=== PATIENT | female | born 1955 ===

== ENCOUNTER 2018-06-19 10:08 | Emergency (ER) | payer MEDICARE, MEDICAID ==
[2018-06-19 10:16] VITALS: BMI 41.3
[2018-06-19] MEDS ORDERED: Tdap Vaccine 0.5 ml Vial (10-64 yrs) IM ONE ×2 (11:25→13:56)
[2018-06-19] MEDS ORDERED: Piperacillin/Tazobact 3.375 GM in Sodium Chloride 0.9% 100 ML IVPB STA (11:25)
[2018-06-19 11:43] LABS: BASO % 0.7 % (0.0-2.0); EOS # 0.3 K/uL (0.0-0.7); EOS % 4.1 % (0.0-4.0); HEMOGLOBIN 11.6 g/dL (12.0-16.0); LYMPH # 1.4 K/uL (1.0-4.3); MEAN CELL VOLUME 81.4 fl (81.0-99.0); MEAN PLATELET VOLUME 8.1 fl (7.2-11.7); MONO # 0.6 K/uL (0.0-0.8); MONO % 8.6 % (0.0-10.0); NEUT # 4.3 K/uL (1.8-7.0); NEUT % 65.6 % (50.0-75.0); NRBC % 0.1 % (0.0-0.0); RBC 4.47 Mil/uL (3.80-5.20); RED CELL DISTRIBUTION WIDTH 15.2 % (11.5-14.5); WHITE BLOOD COUNT 6.5 K/uL (4.8-10.8)
[2018-06-19] MEDS ORDERED: Vancomycin 1 g Inj ONE (11:50)
[2018-06-19 12:02] LABS: ALBUMIN 3.9 g/dL (3.5-5.0); ALT/SGPT 30 U/L (9-52); AST/SGOT 27 U/L (14-36); BLOOD UREA NITROGEN 27 mg/dl (7-17); CALCIUM 9.3 mg/dL (8.4-10.2); GFR NON-AFRICAN AMERICAN > 60
--- NOTE | 2018-06-19 12:09 | RAD ---
Date of service: 06/19/2018 PROCEDURE: Radiographs of the right tibia and fibula. HISTORY: Right lower extremity Pain. No history of recent/ related trauma provided COMPARISON: None available TECHNIQUE: Frontal and lateral views obtained. FINDINGS: BONES: No fracture or destructive lesion. JOINT SPACES: Unremarkable. OTHER FINDINGS: Suggestion of soft tissue swelling about the calf. IMPRESSION: Soft tissue swelling without acute articular or osseous abnormality.
--- NOTE | 2018-06-19 12:15 | ED PDOC ---
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 states last she accidentally struck her R leg against the step on a bus causing a cut on her leg. Since then she's had progressively worsening pain and redness. Denies numbness, tingling, fever, chills, antipyretic use. Past Medical History Reviewed: Historical Data, Nursing Documentation, Vital Signs Vital Signs: Last Vital Signs Temp 98.8 F 06/19/18 10:31 Pulse 72 06/19/18 10:31 Resp 19 06/19/18 10:31 BP 151/81 H 06/19/18 10:31 Pulse Ox 99 06/19/18 10:31 - Medical History PMH: Arthritis, HTN - Surgical History Surgical History: No Surg Hx - Family History Family History: States: No Known Family Hx - Home Medications Home Medications: Ambulatory Orders Medication Instructions Recorded Cephalexin [cephalexin] 500 mg PO Q6 #28 cap 06/19/18 - Allergies Allergies/Adverse Reactions: Allergies Allergy/AdvReac Type Severity Reaction Status Date / Time No Known Allergies Allergy Verified 06/19/18 11:24 Review of Systems ROS Statement: Except As Marked, All Systems Reviewed And Found Negative Musculoskeletal: Positive for: Leg Pain Physical Exam - Physical Exam Appears: Positive for: Well, Non-toxic, No Acute Distress Skin: Positive for: Normal Color, Warm, DRY Eye Exam: Positive for: Normal appearance Cardiovascular/Chest: Positive for: Regular Rate, Rhythm Respiratory: Positive for: Normal Breath Sounds. Negative for: Respiratory Distress Pulses-Dorsalis Pedis (L): 2+ Pulses-Dorsalis Pedis (R): 2+ Extremity: Positive for: Other (R anterior distal leg with healed wound but with surrounding circumferential erythema without fluctuance or discharge). Negative for: Calf Tenderness (b/l) Neurological/Psych: Positive for: Awake, Alert, Oriented (x3) - Laboratory Results Result Diagrams: 06/19/18 11:35 06/19/18 11:35 Lab Results: Total Bilirubin 0.3 mg/dl (0.2-1.3) 06/19/18 11:35 AST 27 U/L (14-36) 06/19/18 11:35 ALT 30 U/L (9-52) 06/19/18 11:35 Alkaline Phosphatase 96 U/L (38-126) 06/19/18 11:35 Total Protein 7.9 G/DL (6.3-8.2) 06/19/18 11:35 Albumin 3.9 g/dL (3.5-5.0) 06/19/18 11:35 Globulin 4.0 gm/dL (2.2-3.9) H 06/19/18 11:35 Albumin/Globulin Ratio 1.0 (1.0-2.1) 06/19/18 11:35 - ECG O2 Sat by Pulse Oximetry: 99 - Radiology X-Ray: Interpreted by Me (R tib/fib x-ray) X-Ray Interpretation: No Acute Disease - Progress ED Course And Treament: Labs, duplex R leg vein US, tib/fib R leg, zosyn IV, vancomycin IV, tetanus prophylaxis ordered. Pt. evaluated by Dr. Rojas, podiatry resident, who recommends outpatient treatment for keflex. Pt. informed of plan and care. Advised to f/u with podiatry clinic for further evaluation but is to return to ED immediately if symptoms worsen. Disposition - Clinical Impression Clinical Impression: Cellulitis - Patient ED Disposition Is Patient to be Admitted: No - Disposition Referrals: Podiatry Clinic [Outside] Disposition: Routine/Home Disposition Time: 15:30 Condition: STABLE Additional Instructions: FOLLOW UP WITH PODIATRY CLINIC FOR FURTHER EVALUATION RETURN TO ED IMMEDIATELY IF SYMPTOMS WORSEN LIANA WELLS, thank you for letting us take care of you today. Your provider was Mir Crespo III, DO and you were treated for RT LEG PAIN. The emergency ms dical care you received today was directed at your acute symptoms. If you were prescribed any medication, please fill it and take as directed. It may take several days for your symptoms to resolve. Return to the Emergency Department if your symptoms worsen, do not improve, or if you have any other problems. Please contact your doctor or call one of the physicians/clinics you have been referred to that are listed on the Patient Visit Information form that is included in your discharge packet. Bring any paperwork you were given at discharge with you along with any medications you are taking to your follow up visit. Our treatment cannot replace ongoing medical care by a primary care provider outside of the emergency department. Thank you for allowing the [facility] team to be part of your care today. If you had an X-Ray or CT scan: A Radiologist will review the ED reading if any change in treatment is needed we will contact you. If you had a blood, urine, or wound culture: It will take several days for the results, if any change in treatment is needed we will contact you. If you had an STI test: It will take 48 hours for the results. Please call after 1 week if you have not heard back. Prescriptions: Cephalexin [cephalexin] 500 mg PO Q6 #28 cap Instructions: Cellulitis (Skin Infection), Adult (DC) Print Language: MALDIVIAN
[2018-06-19] MEDS ORDERED: Piperacillin/Tazobact 3.375 gm Inj IVPB ONE (13:56)
--- NOTE | 2018-06-19 14:22 | US ---
Date of service: 06/19/2018 PROCEDURE: Right lower extremity venous duplex Doppler. HISTORY: Right thigh and leg pain. COMPARISON: None available. TECHNIQUE: Common femoral, superficial femoral, popliteal and posterior tibial veins were evaluated. Flow was assessed with color Doppler, compressibility, assessment of phasic flow and augmentation response. FINDINGS: COMMON FEMORAL VEIN: Unremarkable. SUPERFICIAL FEMORAL VEIN: Unremarkable. POPLITEAL VEIN: Unremarkable. POSTERIOR TIBIAL VEIN: Unremarkable. OTHER FINDINGS: Morphologically, unremarkable lymph node(s) right inguinal region the largest measures 0.8 x 2.9 cm. IMPRESSION: No evidence of deep venous thrombosis in the right lower extremity.
--- NOTE | 2018-06-19 14:49 | CP.PCM.CON ---
History of Present Illness - History of Present Illness History of Present Illness: Podiatry consult note for attending Dr. Thorpe: 63 year old female patient with PMH of HTN a Seen and evaluated at the bedside in the ED for right LE erythema, edema and pain. Patient states that last week she had a small wound in her right leg. She states that it started to get red, hot and swollen. She states that she has only mild pain in her right leg. She states that it's improved now. Patient denies any recent fevers, nausea, vomiting, SOB and chills. She denies any other pedal complaint at this time. She denies numbness, tingling r burning sensation in her lower extremities. Past medical history:HTN Past surgical history: Uterine fibroma surgery Allergies: NKDA Social history: Denies tobacco, alcohol, and illicit drug use. Review of Systems - Review of Systems Review of Systems: As per HPI - Constitutional Constitutional: As Per HPI Past Patient History - Infectious Disease Hx of Infectious Diseases: None - Past Social History Smoking Status: Never Smoked - CARDIAC Hx Hypertension: Yes - PULMONARY Hx Respiratory Disorders: No - ENDOCRINE/METABOLIC Hx Endocrine Disorders: No - INTEGUMENTARY Hx Dermatological Problems: No - MUSCULOSKELETAL/RHEUMATOLOGICAL Hx Arthritis: Yes - PSYCHIATRIC Hx Psychophysiologic Disorder: No Hx Substance Use: No - SURGICAL HISTORY Hx Surgeries: Yes Other/Comment: uterine fibroma - ANESTHESIA Hx Anesthesia: Yes Hx Anesthesia Reactions: No Meds Home Medications: Home Medication List Medication Instructions Recorded Confirmed Type Cephalexin [cephalexin] 500 mg PO Q6 #28 cap 06/19/18 Rx Allergies/Adverse Reactions: Allergies Allergy/AdvReac Type Severity Reaction Status Date / Time No Known Allergies Allergy Verified 06/19/18 11:24 Physical Exam - Constitutional Appears: Well, Non-toxic, No Acute Distress - Head Exam Head Exam: ATRAUMATIC, NORMOCEPHALIC - Extremities Exam Additional comments: B/L LE focused exam: VASC: DP and PT pulses palpable 2/4 ; cap refill <3 seconds to all digits; Temp gradient Warm to warm on the right side; Mild non pitting edema noted on the right leg. NEURO: Gross and protective sensation intact. DERM: Small closed wound covered by hard scab noted in the lower 1/3 of the right leg surrounded by circumferential erythema. MSK: Pain on palpation of the lower 1/3 of the right leg. Muscle power intact 5/5 to all groups b/l. B/L HAV. B/L hammer toe to 2-5 digits b/l. - Neurological Exam Neurological exam: Alert, Oriented x3 - Psychiatric Exam Psychiatric exam: Normal Affect, Normal Mood Results - Vital Signs Recent Vital Signs: Last Vital Signs Temp 98.8 F 06/19/18 10:31 Pulse 72 06/19/18 10:31 Resp 19 06/19/18 10:31 BP 151/81 H 06/19/18 10:31 Pulse Ox 99 06/19/18 12:19 - Labs Result Diagrams: 06/19/18 11:35 06/19/18 11:35 Labs: Laboratory Results - last 24 hr 06/19/18 06/19/18 11:35 11:35 WBC 6.5 RBC 4.47 Hgb 11.6 L Hct 36.4 MCV 81.4 MCH 26.0 L MCHC 32.0 L RDW 15.2 H Plt Count 298 MPV 8.1 Neut % (Auto) 65.6 Lymph % (Auto) 21.0 [place] % (Auto) 8.6 Eos % (Auto) 4.1 H Baso % (Auto) 0.7 Neut # (Auto) 4.3 Lymph # (Auto) 1.4 [place] # (Auto) 0.6 Eos # (Auto) 0.3 Baso # (Auto) 0.0 Sodium 140 Potassium 4.4 Chloride 104 Carbon Dioxide 26 Anion Gap 14 BUN 27 H Creatinine 0.7 Est GFR ( Amer) > 60 Est GFR (Non-Af Amer) > 60 Random Glucose 91 Calcium 9.3 Total Bilirubin 0.3 AST 27 ALT 30 Alkaline Phosphatase 96 Total Protein 7.9 Albumin 3.9 Globulin 4.0 H Albumin/Globulin Ratio 1.0 Assessment & Plan - Assessment and Plan (Free Text) Assessment: 63 year old female patient with PMH of HTN a Seen and evaluated at the bedside in the ED for right LE cellulitis. Plan: Patient seen and evaluated at the bedside Discussed in detail with Dr. Maurilio Guidry editing intern number [id number] used for Syriac translation. Charts, labs and vitals reviewed; Afebrile, WBCs 6.5 Right tib-fibula x-ray: Soft tissue swelling of the leg, No acute osseous or ar ticular changes. Right Venous duplex: No evidence of DVT. Rx; Keflex 500 mg PO Q8 for 1 week. Patient instructed to apply warm compresses to her right leg. Patient to follow up in the podiatry clinic upon discharge from the ED. Thank you for the consult - Date & Time Date: 06/19/18 Time: 14:50
[2018-06-19 15:51] VITALS: BP 140/76; PULSE 66; RESP 18; TEMP 98.3
[2018-06-19 19:09] VITALS: O2SAT 99
== END 2018-06-19 15:54 | disposition home or self-care (01) ==
LOC: H.ER 10:08
DX: L03.115 Cellulitis of right lower limb (principal); M79.604 Pain in right leg; S81.801A Unspecified open wound, right lower leg, initial encounter; Z23 Encounter for immunization; W22.09XA Striking against other stationary object, initial encounter
CPT/HCPCS: 73590; 80053; 85025; 87040; 90471; 90715; 93971; 96365; 99285; J2543